=== PATIENT | female | born 1950 | race Caucasian/White ===

== ENCOUNTER 2016-03-30 13:32 | Emergency (ER) | payer MEDICARE, BC ==
[~2016-03-30] VITALS: Wt 69.0 kg
[2016-03-30] MEDS ORDERED: ONDANSETRON (ODT) 4 MG TAB ODT STA (14:33)
[2016-03-30] MEDS ORDERED: HYDROCODONE/APAP (10/325) TAB PO ONE (15:00)
--- NOTE | 2016-03-30 15:28 | RADRPT ---
PROCEDURE: XR Lumbar Spine. CLINICAL INDICATION: Back pain. Fall. TECHNIQUE: AP, lateral and cone-down lateral view of the lumbar spine were obtained. COMPARISON: No prior studies are available for comparison. FINDINGS: Marked dextroscoliosis of the lumbar spine with apex at L2-L3 The vertebral bodies are otherwise no rmal in height. Multilevel degenerative endplate spurring. Multilevel facet joint arthropathy great est on the right L4-L5 5 inches swelling. No fracture or subluxation is seen. The disc spaces are n ormal in appearance.5 [id number] vertebrae. The soft tissues appear normal. IMPRESSION: Dextro rotoscoliosis with multilevel degenerative spondylosis. Fracture or dislocation. RPTAT:AAJJ Physician Rudi Date Time Electronically viewed and signed by Physician Rudi on 03/30/2016 15:27 SHANNON/
[2016-03-30 15:37] VITALS: PULSE 89
[2016-03-30] MEDS ORDERED: ONDA4TAB14 PO (15:43)
[2016-03-30] MEDS ORDERED: HYDR-902 PO (15:43)
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
== END 2016-03-30 16:34 | disposition home or self-care (01) ==
LOC: FTE 13:32
DX: M54.5 Low back pain (principal)
CPT/HCPCS: 72100